=== PATIENT | male | born 1995 | race Caucasian/White ===

== ENCOUNTER 2018-06-04 22:40 | Emergency (ER) | payer BC ==
[2018-06-04] MEDS ORDERED: Lidocaine 1% (PF) 30 ML VIAL ONE (23:31)
[2018-06-04] MEDS ORDERED: Sodium Chloride 0.9% 100 ML ONE (23:31)
[2018-06-04] MEDS ORDERED: CEFAZOLIN 1 GM VIAL ONE (23:31)
--- NOTE | 2018-06-04 23:32 | RAD ---
XR Finger(s) Rt Min 2 View HISTORY: Injury, pain and laceration of the right index finger COMPARISON: None. FINDINGS: No fracture or dislocation is seen. There is a soft tissue laceration in the right index fi nger. No radiopaque foreign body is seen.
[2018-06-05] MEDS ORDERED: Bacitracin Zinc 1 Packet ONE (00:23)
== END 2018-06-05 00:42 | disposition home or self-care (01) ==
LOC: NAV ERS 22:40
DX: S66.120A Laceration of flexor muscle, fascia and tendon of right index finger at wrist and hand level, initial encounter (principal); Z79.899 Other long term (current) drug therapy; W26.0XXA Contact with knife, initial encounter
CPT/HCPCS: 12001; 96365; J0690; J2001; J3490